=== PATIENT | male | born 1970 | race Caucasian/White ===

== ENCOUNTER 2017-09-25 02:30 | Day surgery (SDC) | payer OTHER ==
[~2017-09-25] VITALS: Ht 167.6 cm; Wt 92.7 kg
[~2017-09-25 02:30] MED LIST: ALBU90OI INH; ASPI325 PO; ASPI81CH PO; ATOR10 PO; ATOR40TA PO; BUPR75 PO; CYCL10 PO; FAMO20 PO; IBUP800 PO; LISI20 PO; METO25ER PO; MITIGARE0.6 MG PO; Plavix75 MG PO; RANI150 PO; Ultram50 MG PO
== END 2017-09-25 14:18 | disposition home or self-care (01) ==
LOC: MHTC 02:30
PROC: B211YZZ Fluoroscopy of Multiple Coronary Arteries using Other Contrast (ICD-10-PCS; principal; 2017-09-25)
PROC: 02703ZZ Dilation of Coronary Artery, One Artery, Percutaneous Approach (ICD-10-PCS; principal; 2017-09-25)
PROC: 4A023N7 Measurement of Cardiac Sampling and Pressure, Left Heart, Percutaneous Approach (ICD-10-PCS; principal; 2017-09-25)
DX: T82.855A Stenosis of coronary artery stent, initial encounter (principal); R06.02 Shortness of breath; R94.39 Abnormal result of other cardiovascular function study; I25.10 Atherosclerotic heart disease of native coronary artery without angina pectoris; E78.00 Pure hypercholesterolemia, unspecified; I10 Essential (primary) hypertension; E78.5 Hyperlipidemia, unspecified; Z79.02 Long term (current) use of antithrombotics/antiplatelets; F17.210 Nicotine dependence, cigarettes, uncomplicated
CPT/HCPCS: 85347; 92920; 93458; 99152; 99153; C1725; C1769; C1894; J1644; J2250; J3010; J7030; Q9967

== ENCOUNTER 2017-12-02 12:06 | Emergency (ER) | payer OTHER ==
[~2017-12-02] VITALS: Ht 167.6 cm; Wt 90.7 kg
== END 2017-12-02 12:47 | disposition home or self-care (01) ==
LOC: ER 12:06
DX: M77.9 Enthesopathy, unspecified (principal); Z88.0 Allergy status to penicillin; Z79.899 Other long term (current) drug therapy; Z79.82 Long term (current) use of aspirin; I25.2 Old myocardial infarction; F17.200 Nicotine dependence, unspecified, uncomplicated
CPT/HCPCS: 96372; 99283; J1885

== ENCOUNTER 2018-01-03 06:36 | Emergency (ER) | payer OTHER ==
[~2018-01-03] VITALS: Ht 170.2 cm; Wt 90.7 kg
[2018-01-03] MEDS ORDERED: Polytrim Eye Dr10 ML BOTHEYES (07:29)
[2018-01-03] MEDS ORDERED: ZADITOR5 ML BOTHEYES (07:29)
== END 2018-01-03 07:35 | disposition home or self-care (01) ==
LOC: ER 06:36
DX: H10.33 Unspecified acute conjunctivitis, bilateral (principal); I25.2 Old myocardial infarction; I25.10 Atherosclerotic heart disease of native coronary artery without angina pectoris; F17.200 Nicotine dependence, unspecified, uncomplicated; Z88.0 Allergy status to penicillin; Z79.899 Other long term (current) drug therapy; Z79.82 Long term (current) use of aspirin
CPT/HCPCS: 99282

== ENCOUNTER 2018-01-04 20:27 | Emergency (ER) | payer OTHER ==
[~2018-01-04] VITALS: Ht 167.6 cm; Wt 90.7 kg
[~2018-01-04 20:27] MED LIST changes: +Polytrim Eye Dr10 ML BOTHEYES; +ZADITOR5 ML BOTHEYES
[2018-01-04 23:06] LABS: BASOPHILS ABSOLUTE AUTO 0.02 K/mm3 (0.00-0.23); BASOPHILS PERCENT AUTO 0 % (0-2); EOSINOPHILS ABSOLUTE AUTO 0.15 K/mm3 (0.00-0.68); EOSINOPHILS PERCENT AUTO 2 % (0-6); Hematocrit 42.6 % (37.0-53.0); Hemoglobin 14.5 g/dL (13.5-17.5); IMMATURE GRAN ABSOLUTE AUTO 0.04 K/mm3 (0.00-0.10); IMMATURE GRAN PERCENT AUTO 0 % (0-1); LYMPHOCYTES ABSOLUTE AUTO 2.68 K/mm3 (0.84-5.20); LYMPHOCYTES PERCENT AUTO 29 % (21-46); MONOCYTES PERCENT AUTO 10 % (4-13); Mean Corpuscular HGB 30.1 pg (26.0-34.0); Mean Corpuscular Volume 89 fL (80-100); Mean Platelet Volume 10.3 fL (9.1-12.4); NEUTROPHILS ABSOLUTE AUTO 5.42 K/mm3 (1.96-9.15); NEUTROPHILS PERCENT AUTO 59 % (41-73); Platelet Count 208 K/mm3 (150-400); RDW Coefficient Variation 11.9 % (11.7-14.2); RDW Standard Deviation 38.5 fL (35.1-46.3); Red Blood Cell Count 4.81 M/mm3 (4.30-5.90); White Blood Cell Count 9.21 K/mm3 (4.00-11.30)
[2018-01-04 23:26] LABS: Alanine Aminotransfer (ALT/SGP 32 U/L (12-78); Albumin/Globulin Ratio 1.3 (0.8-1.8); Alk Phos 54 U/L (50-136); Anion Gap 9 mmol/L (6-16); Aspartate Aminotrans (AST/SGOT 22 U/L (12-37); Bilirubin, Total 0.4 mg/dL (0.1-1.0); Blood Urea Nitrogen 17 mg/dL (8-24); CO2, Blood 26 mmol/L (21-32); Calcium, Blood 8.4 mg/dL (8.5-10.1); Chloride, Blood 106 mmol/L (98-108); Globulin, Blood 3.1 g/dL (2.2-4.0); Glomerular Filtration Rate >60 (60-); Glucose, Blood 98 mg/dL (70-99); Potassium, Blood 3.8 mmol/L (3.5-5.5); Sodium, Blood 141 mmol/L (136-145); Total Protein, Blood 7.1 g/dL (6.4-8.2); Troponin I <0.015 ng/mL (0.000-0.040)
[2018-01-05] MEDS ORDERED: Prednisone20 MG PO (01:39)
== END 2018-01-05 01:49 | disposition home or self-care (01) ==
LOC: ER 20:27
PROVIDERS: Emergency Medicine
DX: G51.0 Bell's palsy (principal); H10.9 Unspecified conjunctivitis; I25.2 Old myocardial infarction; F17.210 Nicotine dependence, cigarettes, uncomplicated; Z88.0 Allergy status to penicillin
CPT/HCPCS: 36415; 70450; 80053; 84484; 85025; 96374; 99285-25; J1885

== ENCOUNTER 2018-06-15 13:16 | Emergency (ER) | payer OTHER ==
[~2018-06-15] VITALS: Ht 170.2 cm; Wt 90.7 kg
[~2018-06-15 13:16] MED LIST changes: +Prednisone20 MG PO
== END 2018-06-15 13:47 | disposition home or self-care (01) ==
LOC: ER 13:16
DX: R23.3 Spontaneous ecchymoses (principal); H11.33 Conjunctival hemorrhage, bilateral; Z88.0 Allergy status to penicillin; Z79.899 Other long term (current) drug therapy; Z79.82 Long term (current) use of aspirin; I25.2 Old myocardial infarction; F17.210 Nicotine dependence, cigarettes, uncomplicated
CPT/HCPCS: 99282

== ENCOUNTER 2018-08-31 10:59 | Emergency (ER) | payer OTHER ==
[~2018-08-31] VITALS: Ht 170.2 cm; Wt 95.2 kg
[2018-08-31] MEDS ORDERED: Norco 10-325 T1 EACH PO (13:36)
[2018-08-31] MEDS ORDERED: Robaxin-750750 MG PO (13:36)
[2018-08-31] MEDS ORDERED: LIDO700A20 TOP (13:36)
== END 2018-08-31 14:30 | disposition home or self-care (01) ==
LOC: ER 10:59
DX: S93.402A Sprain of unspecified ligament of left ankle, initial encounter (principal); S39.012A Strain of muscle, fascia and tendon of lower back, initial encounter; S16.1XXA Strain of muscle, fascia and tendon at neck level, initial encounter; X50.9XXA Other and unspecified overexertion or strenuous movements or postures, initial encounter; Z88.0 Allergy status to penicillin; Z79.899 Other long term (current) drug therapy; Z79.82 Long term (current) use of aspirin; Z79.52 Long term (current) use of systemic steroids; I25.2 Old myocardial infarction; F17.200 Nicotine dependence, unspecified, uncomplicated
CPT/HCPCS: 72040; 72100; 73610; 99284-25

== ENCOUNTER 2018-12-19 12:02 | Emergency (ER) | payer OTHER ==
[~2018-12-19] VITALS: Ht 162.6 cm; Wt 92.5 kg
[~2018-12-19 12:02] MED LIST changes: +LIDO700A20 TOP; +Norco 10-325 T1 EACH PO; +Robaxin-750750 MG PO
[2018-12-19 13:14] LABS: Source, Urine Clean Catch
[2018-12-19 13:16] LABS: Appearance, Urine Clear (Clear); Bilirubin, Urine Neg (Neg); Blood, Urine Neg (Neg); Color, Urine Yellow (P-Yellow); Glucose Qualitative, Urine Neg (Neg); Ketones, Urine 1+ (Neg); Leukocyte Esterase, Urine 1+ (Neg); Nitrite, Urine Neg (Neg); Protein, Urine 2+ (Neg); Specific Gravity, Urine 1.025 (1.003-1.022); Urobilinogen, Urine 2+ (Normal)
[2018-12-19 14:18] LABS: Bacteria Mod /hpf; Hyaline Casts 0-2 /lpf (0-2); Mucus Light (0-Heavy); Red Blood Cells, Urine 0-2 /hpf (0-2); Squamous Epithelial Cells Few /hpf (Few)
[2018-12-19] MEDS ORDERED: Percocet 5-3251 EACH PO (14:40)
== END 2018-12-19 15:04 | disposition home or self-care (01) ==
LOC: ER 12:02
PROVIDERS: Emergency Medicine
DX: S30.1XXA Contusion of abdominal wall, initial encounter (principal); W22.8XXA Striking against or struck by other objects, initial encounter; I25.2 Old myocardial infarction; Z88.0 Allergy status to penicillin; Z79.899 Other long term (current) drug therapy; Z79.82 Long term (current) use of aspirin; Z79.52 Long term (current) use of systemic steroids; F17.200 Nicotine dependence, unspecified, uncomplicated
CPT/HCPCS: 72100; 72170; 81001; 90471; 90714; 99283-25

== ENCOUNTER → 2018-12-27 | Outpatient (CLI) | payer OTHER ==
[~2018-12-27] MED LIST changes: +LOSA25 PO; +Percocet 10-321 EACH PO; +Percocet 5-3251 EACH PO
== END | disposition home or self-care (01) ==
LOC: LAB EV 11:28 → LAB SHORT 11:28
DX: N39.0 Urinary tract infection, site not specified (principal)
CPT/HCPCS: 87086

== ENCOUNTER 2018-12-28 19:49 | Emergency (ER) | payer OTHER ==
[~2018-12-28] VITALS: Ht 167.6 cm; Wt 89.8 kg
[~2018-12-28 19:49] MED LIST changes: -LOSA25 PO; -Percocet 10-321 EACH PO
[2018-12-28 21:09] LABS: BASOPHILS ABSOLUTE AUTO 0.05 K/mm3 (0.00-0.23); BASOPHILS PERCENT AUTO 0 % (0-2); EOSINOPHILS ABSOLUTE AUTO 0.22 K/mm3 (0.00-0.68); EOSINOPHILS PERCENT AUTO 2 % (0-6); Hemoglobin 14.8 g/dL (13.5-17.5); IMMATURE GRAN ABSOLUTE AUTO 0.09 K/mm3 (0.00-0.10); IMMATURE GRAN PERCENT AUTO 1 % (0-1); LYMPHOCYTES ABSOLUTE AUTO 3.37 K/mm3 (0.84-5.20); LYMPHOCYTES PERCENT AUTO 26 % (21-46); MONOCYTES ABSOLUTE AUTO 1.08 K/mm3 (0.16-1.47); MONOCYTES PERCENT AUTO 8 % (4-13); Mean Corpuscular HGB 30.7 pg (26.0-34.0); Mean Corpuscular HGB Conc 33.6 g/dL (31.5-36.5); Mean Corpuscular Volume 91 fL (80-100); Mean Platelet Volume 10.6 fL (9.1-12.4); NEUTROPHILS ABSOLUTE AUTO 8.43 K/mm3 (1.96-9.15); NEUTROPHILS PERCENT AUTO 64 % (41-73); Platelet Count 256 K/mm3 (150-400); RDW Coefficient Variation 12.5 % (11.7-14.2); RDW Standard Deviation 41.6 fL (35.1-46.3); Red Blood Cell Count 4.82 M/mm3 (4.30-5.90); White Blood Cell Count 13.24 K/mm3 (4.00-11.30)
[2018-12-28 21:25] LABS: Alanine Aminotransfer (ALT/SGP 65 U/L (12-78); Albumin/Globulin Ratio 1.1 (0.8-1.8); Alk Phos 81 U/L (50-136); Anion Gap 9 mmol/L (6-16); Aspartate Aminotrans (AST/SGOT 23 U/L (12-37); Bilirubin, Total 0.3 mg/dL (0.1-1.0); Blood Urea Nitrogen 19 mg/dL (8-24); Bun/Creatinine Ratio 22.4 (12.0-20.0); CO2, Blood 24 mmol/L (21-32); Calcium, Blood 9.2 mg/dL (8.5-10.1); Chloride, Blood 104 mmol/L (98-108); Creatinine, Blood 0.85 mg/dL (0.60-1.20); Globulin, Blood 3.5 g/dL (2.2-4.0); Glomerular Filtration Rate >60 (60-); Glucose, Blood 106 mg/dL (70-99); Potassium, Blood 3.8 mmol/L (3.5-5.5); Sodium, Blood 137 mmol/L (136-145); Total Protein, Blood 7.5 g/dL (6.4-8.2)
[2018-12-28] MEDS ORDERED: LOSA25 PO (22:57)
[2018-12-28] MEDS ORDERED: Percocet 10-321 EACH PO (23:20)
== END 2018-12-28 23:38 | disposition home or self-care (01) ==
LOC: ER 19:49
PROVIDERS: Physician Assistant
DX: S70.02XA Contusion of left hip, initial encounter (principal); W22.8XXA Striking against or struck by other objects, initial encounter; Z88.0 Allergy status to penicillin; Z79.899 Other long term (current) drug therapy; Z79.82 Long term (current) use of aspirin; I25.2 Old myocardial infarction; F17.210 Nicotine dependence, cigarettes, uncomplicated
CPT/HCPCS: 36415; 74177; 80053; 85025; 96361-59; 96374-59; 96375-59; 99284-25; A9270; J2270; J2405; J3010; J7120; Q9967

== ENCOUNTER 2019-05-15 12:57 | Emergency (ER) | payer OTHER ==
[~2019-05-15] VITALS: Ht 167.6 cm; Wt 97.1 kg
[~2019-05-15 12:57] MED LIST changes: +LOSA25 PO; +Percocet 10-321 EACH PO
[2019-05-15] MEDS ORDERED: CEPH500 PO (15:08)
[2019-05-15] MEDS ORDERED: HYDR1TAB94 PO (15:10)
== END 2019-05-15 15:27 | disposition home or self-care (01) ==
LOC: ER 12:57
DX: S81.012A Laceration without foreign body, left knee, initial encounter (principal); F17.210 Nicotine dependence, cigarettes, uncomplicated; Z88.0 Allergy status to penicillin; Z79.899 Other long term (current) drug therapy; Z79.82 Long term (current) use of aspirin; Z79.02 Long term (current) use of antithrombotics/antiplatelets; W22.8XXA Striking against or struck by other objects, initial encounter
CPT/HCPCS: 12005; 73562-LT; 96372-59; 99283-25; J0690

== ENCOUNTER 2019-05-28 11:49 | Emergency (ER) | payer OTHER ==
[~2019-05-28] VITALS: Ht 167.6 cm; Wt 90.7 kg
[~2019-05-28 11:49] MED LIST changes: +CEPH500 PO; +HYDR1TAB94 PO
== END 2019-05-28 12:15 | disposition home or self-care (01) ==
LOC: ER 11:49
DX: S81.012D Laceration without foreign body, left knee, subsequent encounter (principal); F17.210 Nicotine dependence, cigarettes, uncomplicated; Z88.0 Allergy status to penicillin; Z79.899 Other long term (current) drug therapy; Z79.82 Long term (current) use of aspirin

== ENCOUNTER 2019-07-10 08:27 | Emergency (ER) | payer OTHER ==
[~2019-07-10] VITALS: Ht 167.6 cm; Wt 95.7 kg
[2019-07-10] MEDS ORDERED: HYDR1TAB94 PO (11:12)
[2019-07-10] MEDS ORDERED: CYCL10 PO (11:12)
[2019-07-10] MEDS ORDERED: IBU800 MG PO (11:12)
== END 2019-07-10 11:48 | disposition home or self-care (01) ==
LOC: ER 08:27
DX: S13.9XXA Sprain of joints and ligaments of unspecified parts of neck, initial encounter (principal); S33.5XXA Sprain of ligaments of lumbar spine, initial encounter; I25.2 Old myocardial infarction; F17.210 Nicotine dependence, cigarettes, uncomplicated; Z88.0 Allergy status to penicillin; Z79.82 Long term (current) use of aspirin; Z79.899 Other long term (current) drug therapy; V59.40XA Driver of pick-up truck or van injured in collision with unspecified motor vehicles in traffic accident, initial encounter
CPT/HCPCS: 72040; 72100; 99283-25

== ENCOUNTER 2019-08-24 11:41 | Day surgery (SDC) | payer OTHER ==
[~2019-08-24] VITALS: Ht 167.6 cm; Wt 92.2 kg
[~2019-08-24 11:41] MED LIST changes: +Aspir 8181 MG PO; +COLCHICINE0.6 MG PO; +DULO30 PO; +IBU800 MG PO; +METO50ER PO; +OMEP20ER PO; +SPIRIVA RESPIMAT4 GM INH; +Ventolin/Prove6.7 GM INH
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
--- NOTE | 2019-08-24 14:52 | NUR ---
08/24/19 0385 Lelo Hanley PT. WAS HAVING PAIN ACROSS ABD. WHEN HE WOKE UP. PT. INSTRUCTED PROBABLY SOME AIR IN HIS COLON THAT HE JUST NEEDS TO PASS OR WILL ABSORB. WHEN PT. GOT TO SD PT. DIDN'T HAVE THIS PAIN. PT. DID C/O A SCRATCHY THROAT BUT FELT BETTER WHEN GETTING SOMETHING TO DRINK.
== END 2019-08-24 14:25 | disposition home or self-care (01) ==
LOC: ORSCSDS 11:41
PROVIDERS: Internal Medicine Gastroenterology
PROC: 0DBM8ZX Excision of Descending Colon, Via Natural or Artificial Opening Endoscopic, Diagnostic (ICD-10-PCS; principal; 2019-08-24 13:00)
PROC: 0DBE8ZX Excision of Large Intestine, Via Natural or Artificial Opening Endoscopic, Diagnostic (ICD-10-PCS; principal; 2019-08-24 13:00)
PROC: 0DB78ZX Excision of Stomach, Pylorus, Via Natural or Artificial Opening Endoscopic, Diagnostic (ICD-10-PCS; principal; 2019-08-24 13:00)
DX: K92.1 Melena (principal); D12.4 Benign neoplasm of descending colon; K63.5 Polyp of colon; K29.70 Gastritis, unspecified, without bleeding; B96.81 Helicobacter pylori [H. pylori] as the cause of diseases classified elsewhere; K29.80 Duodenitis without bleeding; R19.4 Change in bowel habit; R10.32 Left lower quadrant pain; I10 Essential (primary) hypertension; E78.00 Pure hypercholesterolemia, unspecified; F31.9 Bipolar disorder, unspecified; I25.2 Old myocardial infarction; F17.210 Nicotine dependence, cigarettes, uncomplicated; J44.9 Chronic obstructive pulmonary disease, unspecified; I25.10 Atherosclerotic heart disease of native coronary artery without angina pectoris; Z79.899 Other long term (current) drug therapy; Z79.82 Long term (current) use of aspirin; K64.8 Other hemorrhoids
CPT/HCPCS: 88305; 88342; J2704; J7120

== ENCOUNTER 2020-04-01 19:04 | Emergency (ER) | payer OTHER ==
[~2020-04-01] VITALS: Ht 170.2 cm; Wt 90.7 kg
[2020-04-01] MEDS ORDERED: Cleocin HCl300 MG PO (20:00)
[2020-04-01] MEDS ORDERED: IBUP600 PO (20:00)
== END 2020-04-01 20:11 | disposition home or self-care (01) ==
LOC: ER 19:04
DX: K04.7 Periapical abscess without sinus (principal); I25.2 Old myocardial infarction; F17.210 Nicotine dependence, cigarettes, uncomplicated; Z88.0 Allergy status to penicillin; Z79.02 Long term (current) use of antithrombotics/antiplatelets; Z79.82 Long term (current) use of aspirin; Z79.899 Other long term (current) drug therapy
CPT/HCPCS: 99282; A9270

== ENCOUNTER 2020-08-15 10:14 | Emergency (ER) | payer OTHER ==
[~2020-08-15] VITALS: Ht 167.6 cm; Wt 90.7 kg
[~2020-08-15 10:14] MED LIST changes: +Cleocin HCl300 MG PO; +IBUP600 PO
[2020-08-15] MEDS ORDERED: IBUP600 PO (10:48)
[2020-10-31] MEDS ORDERED: PLAVIX75 MG PO (14:09)
== END 2020-08-15 10:56 | disposition home or self-care (01) ==
LOC: ER 10:14
DX: G56.03 Carpal tunnel syndrome, bilateral upper limbs (principal); I25.2 Old myocardial infarction; F17.210 Nicotine dependence, cigarettes, uncomplicated; Z79.02 Long term (current) use of antithrombotics/antiplatelets; Z79.82 Long term (current) use of aspirin; Z79.899 Other long term (current) drug therapy
CPT/HCPCS: 29125; 99283; A9270

== ENCOUNTER 2020-08-28 05:09 | Emergency (ER) | payer OTHER ==
[~2020-08-28] VITALS: Ht 167.6 cm; Wt 86.2 kg
[2020-08-28] MEDS ORDERED: IBUP600 PO ×2 (05:42→07:38)
[2020-08-28] MEDS ORDERED: LATUDA20 M3 PO (05:43)
[2020-08-28] MEDS ORDERED: INCRUSE ELLIPTA 62.5 (05:43)
[2020-08-28] MEDS ORDERED: Ventolin/Prove6.7 GM INH (05:43)
[2020-08-28] MEDS ORDERED: LOSARTAN POTASS25 M2 PO (05:44)
[2020-08-28] MEDS ORDERED: GABA100 PO (05:44)
[2020-08-28] MEDS ORDERED: ATOR40TA PO (05:44)
[2020-08-28] MEDS ORDERED: LOW DOSE ASPIRI81 M1 PO (05:45)
[2020-08-28] MEDS ORDERED: METO50ER PO (05:45)
[2020-10-31] MEDS ORDERED: PLAVIX75 MG PO (14:09)
== END 2020-08-28 07:48 | disposition home or self-care (01) ==
LOC: ER 05:09
DX: S39.011A Strain of muscle, fascia and tendon of abdomen, initial encounter (principal); M25.551 Pain in right hip; M54.5 Low back pain; I25.2 Old myocardial infarction; E11.9 Type 2 diabetes mellitus without complications; Z79.82 Long term (current) use of aspirin; Z88.0 Allergy status to penicillin; Z79.899 Other long term (current) drug therapy; Z95.5 Presence of coronary angioplasty implant and graft; W01.10XA Fall on same level from slipping, tripping and stumbling with subsequent striking against unspecified object, initial encounter
CPT/HCPCS: 72100; 73502; 73700; 96372; 99284-25; A9270; J1885

== ENCOUNTER 2020-10-31 20:39 | Observation (INO) | payer OTHER ==
[~2020-10-31] VITALS: Ht 162.6 cm; Wt 93.0 kg
[~2020-10-31 20:39] MED LIST changes: +GABA100 PO; +INCRUSE ELLIPTA 62.5; +LATUDA20 M3 PO; +LOSARTAN POTASS25 M2 PO; +LOW DOSE ASPIRI81 M1 PO; +PLAVIX75 MG PO
[2020-10-31] MEDS ORDERED: GABA100 PO (21:43)
[2020-10-31] MEDS ORDERED: INCRUSE ELLIPTA 62.5 INH (21:43)
--- NOTE | 2020-11-01 00:14 | NUR ---
ORTHOSTATIC VITALS COMPLETED. MINOR DECREASE IN BP, MINOR INCREASE IN HR.
[2020-11-01 00:16] LABS: CHOL/HDL RATIO 7.7; Cholesterol 200 mg/dL (50-200); HDL Cholesterol 26 mg/dL (>39); LDL/HDL RATIO Unable to Calculate; Low Density Lipoprotein Chol Unable to Calculate mg/dL (0-110); Triglycerides 413 mg/dL (30-160); Troponin I <0.015 ng/mL (0.000-0.040); Very Low Density Lipoprot Chol Unable to Calculate mg/dL (6-32)
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
--- NOTE | 2020-11-01 10:30 | NUR ---
AMBULATION PT NOTED TO BE DIAPHORETIC W/ DYSPNEA AFTER SHORT AMBULATION TO BATHROOM & BACK. TELE REPORTS HR TO HAVE CLIMBED TO THE 130's -140's.
[2020-11-01 13:04] LABS: SARS-Cov-2 (COVID-19) PCR, MMC NEGATIVE (NEGATIVE)
--- NOTE | 2020-11-01 14:21 | NUR ---
PT TO HEART CENTER VIA W/C
--- NOTE | 2020-11-01 14:52 | NUR ---
REPORT CALLED TO LATH TIER
--- NOTE | 2020-11-01 17:49 | NUR ---
AHIFT SUMMARY PT ARRIVED TO UNIT FROM [facility] VIA HOSPITAL BED @ 1623. PT IS A/O X4 AND COOPERATIVE OF CARE. TR BAND IN PLACE WITH 11 ML, NO HEMATOMA, BLEEDING OR PAIN NOTED. VSS SINCE ARRIVAL. O2 SATS >98% ON RA SINCE ARRIVAL TO UNIT. NO C/O CHEST PAIN/PRESSURE SINCE ARRIVAL TO UNIT. NS @100 ML RUNNING PER EMAR.
--- NOTE | 2020-11-01 21:40 | NUR ---
ASSUMED CARE OF PATIENT AT APPROXIMATELY 1910 FROM VALERIE Kovacs, RN AND PARTS COUNTER SALESPERSON GERRY. PATIENT ALERT AND ORIENTED X4; ANXIOUS AT TIMES. PATIENT S/P ANIOGRAM RIGHT RADIAL ACCESS W/ TR BAND IN PLACE; REMOVED 3CC OF AIR AND FULLY DEFLATED DURING BEDSIDE REPORT. PATIENT NEEDED TO GO TO CT AFTER TR BAND DEFLATED; TR BAND REMOVED BY ANOTHER RN AND TEGADERM PLACED WITH ARMBOARD IN PLACE; NO S/S OF BLEEDING, HEMATOMA OR BRUISING NOTED. PATIENT DENIES PAIN, NUMBNESS, TINGLING, DIZZINESS AND NAUSEA. SBA OUT OF BED DUE TO RECENT SYNCOPE. NSR ON TELE; OXYGEN SATUARTION ABOVE 90% ON ROOM AIR. NS INFUSING PER ORDER.
[2020-11-02 03:43] LABS: BASOPHILS ABSOLUTE AUTO 0.04 K/mm3 (0.00-0.23); BASOPHILS PERCENT AUTO 1 % (0-2); EOSINOPHILS ABSOLUTE AUTO 0.19 K/mm3 (0.00-0.68); EOSINOPHILS PERCENT AUTO 2 % (0-6); Hematocrit 44.1 % (37.0-53.0); Hemoglobin 14.8 g/dL (13.5-17.5); IMMATURE GRAN PERCENT AUTO 1 % (0-1); LYMPHOCYTES ABSOLUTE AUTO 2.77 K/mm3 (0.84-5.20); LYMPHOCYTES PERCENT AUTO 32 % (21-46); MONOCYTES ABSOLUTE AUTO 0.96 K/mm3 (0.16-1.47); MONOCYTES PERCENT AUTO 11 % (4-13); Mean Corpuscular HGB 29.7 pg (26.0-34.0); Mean Corpuscular HGB Conc 33.6 g/dL (31.5-36.5); Mean Corpuscular Volume 88 fL (80-100); Mean Platelet Volume 9.9 fL (9.1-12.4); NEUTROPHILS ABSOLUTE AUTO 4.67 K/mm3 (1.96-9.15); NEUTROPHILS PERCENT AUTO 54 % (41-73); Platelet Count 245 K/mm3 (150-400); RDW Coefficient Variation 12.3 % (11.7-14.2); RDW Standard Deviation 39.8 fL (35.1-46.3); Red Blood Cell Count 4.99 M/mm3 (4.30-5.90); White Blood Cell Count 8.73 K/mm3 (4.00-11.30)
[2020-11-02 04:13] LABS: Alanine Aminotransfer (ALT/SGP 36 U/L (12-78); Albumin, Blood 3.6 g/dL (3.4-5.0); Alk Phos 64 U/L (50-136); Anion Gap 4 mmol/L (6-16); Aspartate Aminotrans (AST/SGOT 10 U/L (12-37); Bilirubin, Total 0.3 mg/dL (0.1-1.0); Blood Urea Nitrogen 17 mg/dL (8-24); CO2, Blood 28 mmol/L (21-32); Calcium, Blood 8.7 mg/dL (8.5-10.1); Chloride, Blood 104 mmol/L (98-108); Globulin, Blood 3.6 g/dL (2.2-4.0); Glomerular Filtration Rate >60 (60-); Glucose, Blood 111 mg/dL (70-99); Magnesium, Blood 2.3 mg/dL (1.6-2.4); Potassium, Blood 4.2 mmol/L (3.5-5.5); Sodium, Blood 136 mmol/L (136-145); Total Protein, Blood 7.2 g/dL (6.4-8.2)
--- NOTE | 2020-11-02 06:46 | NUR ---
PATIENT SLEPT ABOUT EIGHT HOURS LAST NIGHT. VSS. NO OTHER ACUTE CHANGES.
--- NOTE | 2020-11-02 10:12 | NUR ---
PT AGGITATED PT BECAME AGGITATED WITH [employer] AIR TRAFFIC CONTROL SPECIALIST D/T BEING INFORMED OF DRIVING REGULATIONS REGARDING SYNCOPE. SECURITY CALLED. PHYSICIAN AWARE, DISHCARGE PAPERWORK TO BE PROVIDED. PT NO LONGER AGGITATED.
--- NOTE | 2020-11-02 10:22 | NUR ---
UPDATE PT REMOVED TELEMETRY PATCHES D/T PENDING DC.
[2020-11-02] MEDS ORDERED: NICO21TP TOP (10:35)
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
--- NOTE | 2020-11-02 12:04 | NUR ---
Update 11/02/20 1202: Dr. Estrada visited pt. this AM and discussed risk of driving with re-occurring episodes of syncope. She advised pt. that she would be required to report to the DMV the concern for driving and pt. became angry. Pt. leaving the hospital AMA. I scheduled pt. for F/U with César Alston next week. I advised César to please review hospital discharge summary prior to visit. Nurse gave pt. the details regarding appointment.
== END 2020-11-02 10:48 | disposition home or self-care (01) ==
LOC: ER 20:39 → SURS 20:40 → PCU 11-01 16:12
PROVIDERS: Family Medicine; Internal Medicine Cardiovascular Disease; ADMIT Family Medicine
DX: R55 Syncope and collapse (principal); I25.119 Atherosclerotic heart disease of native coronary artery with unspecified angina pectoris; F17.210 Nicotine dependence, cigarettes, uncomplicated; F10.10 Alcohol abuse, uncomplicated; G62.9 Polyneuropathy, unspecified; I10 Essential (primary) hypertension; E78.5 Hyperlipidemia, unspecified; F12.90 Cannabis use, unspecified, uncomplicated; I25.2 Old myocardial infarction; I70.0 Atherosclerosis of aorta; I65.23 Occlusion and stenosis of bilateral carotid arteries; E66.9 Obesity, unspecified; Z95.5 Presence of coronary angioplasty implant and graft; Z91.14 Patient's other noncompliance with medication regimen; Z20.822 Contact with and (suspected) exposure to COVID-19; Z79.82 Long term (current) use of aspirin; Z79.02 Long term (current) use of antithrombotics/antiplatelets; Z88.0 Allergy status to penicillin; Z68.33 Body mass index [BMI] 33.0-33.9, adult
CPT/HCPCS: 36415; 70450; 71046; 76937; 80053; 80061; 83036; 83735; 84484; 85025; 85347; 92978; 93005; 93010; 93246; 93306; 93454; 93880; 94760; 96372; 99152; 99153; 99284; 99284-25; A9270; C1753; C1769; C1887; C1894; G0378; J1644; J1650; J2250; J3010; J7030; J7050; J7120; Q9967; U0004

== ENCOUNTER 2020-11-23 17:10 | Emergency (ER) | payer OTHER ==
[~2020-11-23] VITALS: Ht 160 cm; Wt 90.7 kg
[~2020-11-23 17:10] MED LIST changes: +INCRUSE ELLIPTA 62.5 INH; +NICO21TP TOP
[2020-11-23 17:36] LABS: BASOPHILS ABSOLUTE AUTO 0.03 K/mm3 (0.00-0.23); BASOPHILS PERCENT AUTO 0 % (0-2); EOSINOPHILS ABSOLUTE AUTO 0.17 K/mm3 (0.00-0.68); EOSINOPHILS PERCENT AUTO 2 % (0-6); Hematocrit 38.6 % (37.0-53.0); Hemoglobin 12.9 g/dL (13.5-17.5); IMMATURE GRAN ABSOLUTE AUTO 0.12 K/mm3 (0.00-0.10); IMMATURE GRAN PERCENT AUTO 1 % (0-1); LYMPHOCYTES ABSOLUTE AUTO 1.46 K/mm3 (0.84-5.20); LYMPHOCYTES PERCENT AUTO 14 % (21-46); MONOCYTES ABSOLUTE AUTO 1.05 K/mm3 (0.16-1.47); MONOCYTES PERCENT AUTO 10 % (4-13); Mean Corpuscular HGB 29.9 pg (26.0-34.0); Mean Corpuscular HGB Conc 33.4 g/dL (31.5-36.5); Mean Corpuscular Volume 90 fL (80-100); Mean Platelet Volume 9.6 fL (9.1-12.4); NEUTROPHILS ABSOLUTE AUTO 7.57 K/mm3 (1.96-9.15); NEUTROPHILS PERCENT AUTO 73 % (41-73); Platelet Count 244 K/mm3 (150-400); RDW Coefficient Variation 12.5 % (11.7-14.2); RDW Standard Deviation 41.3 fL (35.1-46.3); Red Blood Cell Count 4.31 M/mm3 (4.30-5.90)
[2020-11-23 17:57] LABS: Alanine Aminotransfer (ALT/SGP 48 U/L (12-78); Albumin, Blood 3.9 g/dL (3.4-5.0); Alk Phos 90 U/L (50-136); Anion Gap 4 mmol/L (6-16); Aspartate Aminotrans (AST/SGOT 36 U/L (12-37); Bilirubin, Total 0.7 mg/dL (0.1-1.0); Blood Urea Nitrogen 14 mg/dL (8-24); Bun/Creatinine Ratio 12.8 (12.0-20.0); CO2, Blood 25 mmol/L (21-32); Calcium, Blood 8.9 mg/dL (8.5-10.1); Chloride, Blood 109 mmol/L (98-108); Creatinine, Blood 1.09 mg/dL (0.60-1.20); Ethanol (Alcohol), Blood, Med <3 mg/dL; Globulin, Blood 3.8 g/dL (2.2-4.0); Glomerular Filtration Rate >60 (60-); Glucose, Blood 95 mg/dL (70-99); Potassium, Blood 3.6 mmol/L (3.5-5.5); Sodium, Blood 138 mmol/L (136-145); Total Protein, Blood 7.7 g/dL (6.4-8.2)
[2020-11-23 18:06] LABS: U Amphetamine Screen DETECTED; U Barbituate Screen Not Detected; U Benzodiazapine Screen Not Detected; U Buprenorphine Screen Not Detected; U Cannabinoids Screen DETECTED; U Cocaine Screen Not Detected; U Methadone Screen Not Detected; U Methamphetamine Screen DETECTED; U Opiates Screen Not Detected; U Oxycodone Screen Not Detected; U Phencyclidine Screen Not Detected; U Propoxyphene Screen Not Detected
[2020-11-23] MEDS ORDERED: HYDR1TAB94 PO (22:27)
== END 2020-11-23 22:57 | disposition home or self-care (01) ==
LOC: ER 17:10
PROVIDERS: Emergency Medicine
DX: S22.081A Stable burst fracture of T11-T12 vertebra, initial encounter for closed fracture (principal); I25.2 Old myocardial infarction; F17.210 Nicotine dependence, cigarettes, uncomplicated; Z88.0 Allergy status to penicillin; Z79.82 Long term (current) use of aspirin; Z88.6 Allergy status to analgesic agent; Z79.899 Other long term (current) drug therapy; V48.9XXA Unspecified car occupant injured in noncollision transport accident in traffic accident, initial encounter
CPT/HCPCS: 29125; 36415; 71260; 72125; 73110; 73610; 74177; 80053; 85025; 96374; 99284-25; A9270; G0480; J2704; J3010; J7030; Q9967

== ENCOUNTER 2020-12-02 23:06 | Emergency (ER) | payer OTHER ==
[~2020-12-02] VITALS: Ht 162.6 cm; Wt 88.5 kg
== END 2020-12-03 01:39 | disposition home or self-care (01) ==
LOC: ER 23:06
DX: S30.0XXA Contusion of lower back and pelvis, initial encounter (principal); F17.210 Nicotine dependence, cigarettes, uncomplicated; Z88.0 Allergy status to penicillin; Z79.82 Long term (current) use of aspirin; V89.2XXA Person injured in unspecified motor-vehicle accident, traffic, initial encounter
CPT/HCPCS: 96372; 99283; J1885

== ENCOUNTER 2021-04-24 19:32 | Emergency (ER) | payer OTHER ==
[~2021-04-24] VITALS: Ht 167.6 cm; Wt 85.7 kg
[2021-04-24] MEDS ORDERED: CYCL10 PO (21:08)
[2021-04-24] MEDS ORDERED: LIDO700A20 TOP (21:08)
== END 2021-04-24 21:15 | disposition home or self-care (01) ==
LOC: ER 19:32
DX: S30.0XXA Contusion of lower back and pelvis, initial encounter (principal); I25.2 Old myocardial infarction; F17.210 Nicotine dependence, cigarettes, uncomplicated; Z88.0 Allergy status to penicillin; Z79.82 Long term (current) use of aspirin; Z79.899 Other long term (current) drug therapy; W22.8XXA Striking against or struck by other objects, initial encounter
CPT/HCPCS: 72100; 96372; 99283-25; A9270; J1885

== ENCOUNTER 2021-05-05 09:51 | Emergency (ER) | payer OTHER ==
[~2021-05-05] VITALS: Ht 167.6 cm; Wt 88.5 kg
== END 2021-05-05 12:20 | disposition home or self-care (01) ==
LOC: ER 09:51
DX: K56.41 Fecal impaction (principal); Z88.0 Allergy status to penicillin; Z79.899 Other long term (current) drug therapy; Z79.82 Long term (current) use of aspirin; I25.2 Old myocardial infarction; I10 Essential (primary) hypertension; F17.210 Nicotine dependence, cigarettes, uncomplicated
CPT/HCPCS: 99283

== ENCOUNTER 2021-07-01 23:24 | Emergency (ER) | payer OTHER ==
[~2021-07-01] VITALS: Ht 167.6 cm; Wt 88.5 kg
[2021-07-01] MEDS ORDERED: CEPH500 PO (23:56)
[2021-07-02] MEDS ORDERED: BACTRIM DS TAB1 EAC6 PO (14:55)
[2021-07-02] MEDS ORDERED: CEPH500 PO (14:55)
[2021-07-03] MEDS ORDERED: IBU800 M1 PO (15:48)
== END 2021-07-02 00:23 | disposition home or self-care (01) ==
LOC: ER 23:24
DX: L03.113 Cellulitis of right upper limb (principal); I10 Essential (primary) hypertension; I25.2 Old myocardial infarction; F17.210 Nicotine dependence, cigarettes, uncomplicated; Z88.0 Allergy status to penicillin; Z79.82 Long term (current) use of aspirin; Z79.899 Other long term (current) drug therapy
CPT/HCPCS: A9270

== ENCOUNTER 2021-07-02 12:56 | Inpatient (IN) | payer OTHER ==
[~2021-07-02] VITALS: Ht 167.6 cm; Wt 92.1 kg
[2021-07-02 13:43] LABS: BASOPHILS ABSOLUTE AUTO 0.06 K/mm3 (0.00-0.23); BASOPHILS PERCENT AUTO 0 % (0-2); EOSINOPHILS ABSOLUTE AUTO 0.03 K/mm3 (0.00-0.68); EOSINOPHILS PERCENT AUTO 0 % (0-6); Hematocrit 43.2 % (37.0-53.0); Hemoglobin 14.5 g/dL (13.5-17.5); IMMATURE GRAN ABSOLUTE AUTO 0.09 K/mm3 (0.00-0.10); IMMATURE GRAN PERCENT AUTO 0 % (0-1); LYMPHOCYTES ABSOLUTE AUTO 1.44 K/mm3 (0.84-5.20); LYMPHOCYTES PERCENT AUTO 7 % (21-46); MONOCYTES ABSOLUTE AUTO 1.54 K/mm3 (0.16-1.47); MONOCYTES PERCENT AUTO 8 % (4-13); Mean Corpuscular HGB 29.4 pg (26.0-34.0); Mean Corpuscular HGB Conc 33.6 g/dL (31.5-36.5); Mean Corpuscular Volume 88 fL (80-100); NEUTROPHILS PERCENT AUTO 85 % (41-73); Platelet Count 209 K/mm3 (150-400); RDW Coefficient Variation 12.2 % (11.7-14.2); RDW Standard Deviation 39.4 fL (35.1-46.3); Red Blood Cell Count 4.93 M/mm3 (4.30-5.90); White Blood Cell Count 20.16 K/mm3 (4.00-11.30)
[2021-07-02 14:10] LABS: Alanine Aminotransfer (ALT/SGP 36 U/L (12-78); Albumin, Blood 3.4 g/dL (3.4-5.0); Albumin/Globulin Ratio 0.8 (0.8-1.8); Alk Phos 85 U/L (50-136); Anion Gap 6 mmol/L (6-16); Aspartate Aminotrans (AST/SGOT 18 U/L (12-37); Bilirubin, Total 0.5 mg/dL (0.1-1.0); Blood Urea Nitrogen 13 mg/dL (8-24); Bun/Creatinine Ratio 14.1 (12.0-20.0); CO2, Blood 25 mmol/L (21-32); Calcium, Blood 8.6 mg/dL (8.5-10.1); Chloride, Blood 103 mmol/L (98-108); Creatinine, Blood 0.92 mg/dL (0.60-1.20); Globulin, Blood 4.2 g/dL (2.2-4.0); Glomerular Filtration Rate >60 (60-); Glucose, Blood 98 mg/dL (70-99); Potassium, Blood 3.8 mmol/L (3.5-5.5); Sodium, Blood 134 mmol/L (136-145); Total Protein, Blood 7.6 g/dL (6.4-8.2)
[2021-07-02] MEDS ORDERED: BACTRIM DS TAB1 EAC6 PO (14:55)
[2021-07-02] MEDS ORDERED: CEPH500 PO (14:55)
--- NOTE | 2021-07-02 18:30 | NUR ---
SUMMARY PT ARRIVED FROM THE ER, ALERT AND ORIENTED, INDEPENDENT IN THE ROOM, ORIENTED PT TO ROOM AND CALL SYSTEM, WILL REPORT TO NOC SHIFT
[2021-07-02 21:10] LABS: Influenza A, PCR NEGATIVE (NEGATIVE); Influenza B, PCR NEGATIVE (NEGATIVE); Resp Syncytial Virus, PCR NEGATIVE (NEGATIVE); SARS-Cov-2 (COVID-19) PCR, MMC NEGATIVE (NEGATIVE)
[2021-07-03 01:11] LABS: U Amphetamine Screen DETECTED; U Barbituate Screen Not Detected; U Benzodiazapine Screen Not Detected; U Buprenorphine Screen Not Detected; U Cannabinoids Screen Not Detected; U Cocaine Screen Not Detected; U Methadone Screen Not Detected; U Methamphetamine Screen DETECTED; U Opiates Screen Not Detected; U Oxycodone Screen Not Detected; U Phencyclidine Screen Not Detected; U Propoxyphene Screen Not Detected
[2021-07-03 04:37] LABS: BASOPHILS ABSOLUTE AUTO 0.03 K/mm3 (0.00-0.23); BASOPHILS PERCENT AUTO 0 % (0-2); EOSINOPHILS ABSOLUTE AUTO 0.08 K/mm3 (0.00-0.68); EOSINOPHILS PERCENT AUTO 1 % (0-6); IMMATURE GRAN ABSOLUTE AUTO 0.07 K/mm3 (0.00-0.10); IMMATURE GRAN PERCENT AUTO 1 % (0-1); LYMPHOCYTES ABSOLUTE AUTO 1.46 K/mm3 (0.84-5.20); LYMPHOCYTES PERCENT AUTO 11 % (21-46); MONOCYTES ABSOLUTE AUTO 1.37 K/mm3 (0.16-1.47); MONOCYTES PERCENT AUTO 10 % (4-13); Mean Corpuscular HGB 29.8 pg (26.0-34.0); Mean Corpuscular HGB Conc 34.2 g/dL (31.5-36.5); Mean Corpuscular Volume 87 fL (80-100); Mean Platelet Volume 9.9 fL (9.1-12.4); NEUTROPHILS ABSOLUTE AUTO 10.62 K/mm3 (1.96-9.15); NEUTROPHILS PERCENT AUTO 78 % (41-73); Platelet Count 182 K/mm3 (150-400); RDW Coefficient Variation 12.3 % (11.7-14.2); RDW Standard Deviation 39.6 fL (35.1-46.3); Red Blood Cell Count 4.36 M/mm3 (4.30-5.90); White Blood Cell Count 13.63 K/mm3 (4.00-11.30)
[2021-07-03 05:12] LABS: Anion Gap 8 mmol/L (6-16); Blood Urea Nitrogen 15 mg/dL (8-24); CO2, Blood 24 mmol/L (21-32); Calcium, Blood 8.2 mg/dL (8.5-10.1); Chloride, Blood 104 mmol/L (98-108); Creatinine, Blood 0.94 mg/dL (0.60-1.20); Glomerular Filtration Rate >60 (60-); Glucose, Blood 119 mg/dL (70-99); Potassium, Blood 3.7 mmol/L (3.5-5.5); Sodium, Blood 136 mmol/L (136-145)
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
[2021-07-03] MEDS ORDERED: IBU800 M1 PO (15:48)
--- NOTE | 2021-07-03 17:02 | NUR ---
SUMMARY PT SITTING UP IN BED VISITING WITH S.O., PT HAS BEEN COOPERATIVE WITH CARE T/O THE DAY, INDEPENDENT IN THE ROOM, MED PER EMAR FOR PAIN, PT HAD A CT SCAN OF THE R ARM TODAY, ORTHO CONSULTED, DR SCHMITZ IN TO SEE THE PT, POSSIBLY GOING TO THE OR TOMORROW FOR I AND D OF THE R HAND, PT TO BE NPO AFTER MIDNIGHT, PT AWARE AND AGREEABLE TO THIS, VSS, NO COMPLAINTS, WILL CONT TO MONITOR
[2021-07-03 20:11] LABS: Vancomycin, Trough 10.3 ug/mL (5.0-10.0)
--- NOTE | 2021-07-04 04:13 | NUR ---
SHIFT SUMMARY ADMITTED FOR RT HAND CELLULITIS. FULL CODE. PLAN IS FOR POSSIBLE I&D TODAY. IV ANTIB RX ARE SCHEDULED. PT HAS BEEN NPO SINCE 2400 HRS. PT HAS BEEN MEDICATED FOR PAIN THIS SHIFT, SEE EMAR. HE IS ON A REGULAR DIET. HE IS INDEPENDENT IN ROOM. HE IS ON RA. HE IS HOMELESS. HX: NE W/ STENTS 2014, METH+
[2021-07-04 04:45] LABS: BASOPHILS ABSOLUTE AUTO 0.04 K/mm3 (0.00-0.23); BASOPHILS PERCENT AUTO 0 % (0-2); EOSINOPHILS ABSOLUTE AUTO 0.15 K/mm3 (0.00-0.68); EOSINOPHILS PERCENT AUTO 1 % (0-6); Hematocrit 40.9 % (37.0-53.0); Hemoglobin 13.7 g/dL (13.5-17.5); IMMATURE GRAN ABSOLUTE AUTO 0.07 K/mm3 (0.00-0.10); IMMATURE GRAN PERCENT AUTO 1 % (0-1); LYMPHOCYTES ABSOLUTE AUTO 1.46 K/mm3 (0.84-5.20); LYMPHOCYTES PERCENT AUTO 14 % (21-46); MONOCYTES ABSOLUTE AUTO 1.19 K/mm3 (0.16-1.47); MONOCYTES PERCENT AUTO 12 % (4-13); Mean Corpuscular HGB 29.1 pg (26.0-34.0); Mean Corpuscular HGB Conc 33.5 g/dL (31.5-36.5); Mean Corpuscular Volume 87 fL (80-100); Mean Platelet Volume 10.1 fL (9.1-12.4); NEUTROPHILS ABSOLUTE AUTO 7.45 K/mm3 (1.96-9.15); NEUTROPHILS PERCENT AUTO 72 % (41-73); Platelet Count 189 K/mm3 (150-400); White Blood Cell Count 10.36 K/mm3 (4.00-11.30)
[2021-07-04 05:13] LABS: Anion Gap 7 mmol/L (6-16); Blood Urea Nitrogen 13 mg/dL (8-24); Bun/Creatinine Ratio 15.3 (12.0-20.0); CO2, Blood 25 mmol/L (21-32); Calcium, Blood 8.4 mg/dL (8.5-10.1); Chloride, Blood 103 mmol/L (98-108); Creatinine, Blood 0.85 mg/dL (0.60-1.20); Glomerular Filtration Rate >60 (60-); Glucose, Blood 121 mg/dL (70-99); Potassium, Blood 4.2 mmol/L (3.5-5.5); Sodium, Blood 135 mmol/L (136-145)
--- NOTE | 2021-07-04 11:41 | NUR ---
PATIENT NOTIFIED RN OF RIGHT CALF SWELLING AND TENDERNESS. NO REDNEDD NOTED. PEDAL PULSE PALPABLE. PATIENT C/O FEELING IF HIS FACE IS SWOLLEN, REDNEDD AROUND HIS NOSE AND FOREHEAD NOTED. DR. ALEXANDER NOTIFIED BY TELEPHONE ON 07/04/21 AT 11:42.
--- NOTE | 2021-07-04 17:10 | NUR ---
PATIENT IS ALERT AND ORIENTED AND COOPERATIVE WITH CARE. PATIENT C/O RIGHT CALF SWELLING AND TENDERNESS, DR. ALEXANDER NOTIFIED AND ORDERS GIVEN. PATIENT C/O RIGHT HAND PAIN, MEDICATED PER EMAR. IV ANTIBIOTICS. DR. ALVAREZ IS CONSULTING. WILL CONTINUE TO MONITOR
--- NOTE | 2021-07-04 19:45 | NUR ---
REPORT GIVEN BY TIA SMART. PT IRRITABLE UPON ENTERING ROOM. STATES JUST WHEN I GET TO SLEEP SOMEONE COMES AND WAKES ME UP. INFORMED PT THAT I WOULD BE COMING IN TO DO ASSESSMENT AND ASKED HIM IF HE NEEDED ANY PAIN MEDS. PT STATES HIS PAIN IS 9/10 RIGHT HAND AND RIGHT ARM. WILL MEDICATE FOR PAIN PER EMAR AND PROVIDE CARE T/O SHIFT. CALL LT IN REACH.
[2021-07-04 20:26] LABS: Vancomycin, Trough 18.2 ug/mL (5.0-10.0)
--- NOTE | 2021-07-04 23:58 | NUR ---
PT RESTING QUIETLY. NO NEEDS AT THIS TIME. CALL LT IN REACH.
--- NOTE | 2021-07-05 04:28 | NUR ---
SHIFT SUMMARY: A/O. LITTLE IRRITABLE AT TIMES. ON RA. NO SOB. MEDICATED WITH 4 MG IV MORPHINE X 2 FOR RIGHT HAND PAIN DURING SHIFT WITH GOOD RESULTS. PT RESTED WELL. NPO FOR POSSIBLE PROCEDURE TODAY. RIGHT HAND SWOLLEN AND TENDER TO TOUCH. NO ACUTE CHANGES. WILL CONTINUE TO PROVIDE CARE UNTIL SHIFT REPORT.
[2021-07-05 05:11] LABS: BASOPHILS ABSOLUTE AUTO 0.04 K/mm3 (0.00-0.23); BASOPHILS PERCENT AUTO 0 % (0-2); EOSINOPHILS ABSOLUTE AUTO 0.18 K/mm3 (0.00-0.68); EOSINOPHILS PERCENT AUTO 2 % (0-6); Hematocrit 43.9 % (37.0-53.0); Hemoglobin 14.8 g/dL (13.5-17.5); IMMATURE GRAN ABSOLUTE AUTO 0.07 K/mm3 (0.00-0.10); IMMATURE GRAN PERCENT AUTO 1 % (0-1); LYMPHOCYTES ABSOLUTE AUTO 1.58 K/mm3 (0.84-5.20); LYMPHOCYTES PERCENT AUTO 16 % (21-46); MONOCYTES ABSOLUTE AUTO 1.19 K/mm3 (0.16-1.47); MONOCYTES PERCENT AUTO 12 % (4-13); Mean Corpuscular HGB 29.3 pg (26.0-34.0); Mean Corpuscular HGB Conc 33.7 g/dL (31.5-36.5); Mean Corpuscular Volume 87 fL (80-100); Mean Platelet Volume 10.6 fL (9.1-12.4); NEUTROPHILS ABSOLUTE AUTO 7.07 K/mm3 (1.96-9.15); NEUTROPHILS PERCENT AUTO 70 % (41-73); Platelet Count 224 K/mm3 (150-400); RDW Coefficient Variation 12.1 % (11.7-14.2); RDW Standard Deviation 38.7 fL (35.1-46.3); Red Blood Cell Count 5.05 M/mm3 (4.30-5.90); White Blood Cell Count 10.13 K/mm3 (4.00-11.30)
[2021-07-05 05:56] LABS: Anion Gap 9 mmol/L (6-16); Blood Urea Nitrogen 13 mg/dL (8-24); Bun/Creatinine Ratio 15.8 (12.0-20.0); CO2, Blood 24 mmol/L (21-32); Calcium, Blood 8.5 mg/dL (8.5-10.1); Chloride, Blood 103 mmol/L (98-108); Creatinine, Blood 0.82 mg/dL (0.60-1.20); Glomerular Filtration Rate >60 (60-); Glucose, Blood 122 mg/dL (70-99); Potassium, Blood 4.5 mmol/L (3.5-5.5); Sodium, Blood 136 mmol/L (136-145)
--- NOTE | 2021-07-05 18:14 | NUR ---
PATIENT IS ALERT AND ORIENTED AND COOPERATIVE WITH CARE. PAIN STATES HIS RIGHT HAND PAIN HAS BEEN TOLERABLE THIS SHIFT, NOT MEDICATED. PATIENT SLEPT BETWEEN MEALS. PLAN IS FOR DR. ALVAREZ TO REASSESS FOR I&D TOMORROW, THE PATIENT IS NOT TO BE MADE NPO AFTER MIDNIGHT TONIGHT LIKE HE HAD THE PREVIOUS NIGHTS. WILL CONTINUE TO MONITOR.
[2021-07-06 04:15] LABS: BASOPHILS ABSOLUTE AUTO 0.05 K/mm3 (0.00-0.23); BASOPHILS PERCENT AUTO 1 % (0-2); EOSINOPHILS ABSOLUTE AUTO 0.17 K/mm3 (0.00-0.68); EOSINOPHILS PERCENT AUTO 2 % (0-6); Hematocrit 44.3 % (37.0-53.0); IMMATURE GRAN ABSOLUTE AUTO 0.16 K/mm3 (0.00-0.10); IMMATURE GRAN PERCENT AUTO 2 % (0-1); LYMPHOCYTES ABSOLUTE AUTO 1.73 K/mm3 (0.84-5.20); LYMPHOCYTES PERCENT AUTO 17 % (21-46); MONOCYTES ABSOLUTE AUTO 1.18 K/mm3 (0.16-1.47); MONOCYTES PERCENT AUTO 11 % (4-13); Mean Corpuscular HGB 29.5 pg (26.0-34.0); Mean Corpuscular HGB Conc 33.9 g/dL (31.5-36.5); Mean Corpuscular Volume 87 fL (80-100); Mean Platelet Volume 9.4 fL (9.1-12.4); NEUTROPHILS PERCENT AUTO 69 % (41-73); Platelet Count 299 K/mm3 (150-400); RDW Coefficient Variation 11.9 % (11.7-14.2); RDW Standard Deviation 38.3 fL (35.1-46.3); Red Blood Cell Count 5.09 M/mm3 (4.30-5.90); White Blood Cell Count 10.49 K/mm3 (4.00-11.30)
[2021-07-06 04:34] LABS: Anion Gap 7 mmol/L (6-16); Blood Urea Nitrogen 15 mg/dL (8-24); CO2, Blood 26 mmol/L (21-32); Calcium, Blood 8.8 mg/dL (8.5-10.1); Chloride, Blood 104 mmol/L (98-108); Creatinine, Blood 0.83 mg/dL (0.60-1.20); Glomerular Filtration Rate >60 (60-); Glucose, Blood 149 mg/dL (70-99); Sodium, Blood 137 mmol/L (136-145); Vancomycin, Trough 8.5 ug/mL (5.0-10.0)
[2021-07-06] MEDS ORDERED: SULFAMETHOXAZO1 EAC1 PO (16:22)
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
== END 2021-07-06 16:40 | disposition home or self-care (01) | DRG 603 ==
LOC: ER 12:56 → MEDS 17:24 → ENPENDDIS 07-06 15:40 → MEDS 07-06 16:40
PROVIDERS: Pharmacist; Physician Assistant; ADMIT Family Medicine
DX: L03.113 Cellulitis of right upper limb (principal); I10 Essential (primary) hypertension; I25.10 Atherosclerotic heart disease of native coronary artery without angina pectoris; E78.5 Hyperlipidemia, unspecified; Z59.00 Homelessness unspecified; Z88.0 Allergy status to penicillin; K21.9 Gastro-esophageal reflux disease without esophagitis; Z20.822 Contact with and (suspected) exposure to COVID-19; Z95.5 Presence of coronary angioplasty implant and graft; F17.210 Nicotine dependence, cigarettes, uncomplicated; Z79.82 Long term (current) use of aspirin; Z79.899 Other long term (current) drug therapy; I25.2 Old myocardial infarction; Z98.890 Other specified postprocedural states
CPT/HCPCS: 0241U; 36415; 70450; 73201; 80048; 80053; 80202; 83605; 84145; 85025; 85651; 86140; 87040; 93971; 94640; 94664; 94760; 96365; 99283; 99285-25; A9270; J0696; J1650; J1885; J2270; J3370; J7050; Q9967

== ENCOUNTER 2021-12-01 06:29 | Emergency (ER) | payer OTHER ==
[~2021-12-01] VITALS: Ht 167.6 cm; Wt 99.8 kg
[~2021-12-01 06:29] MED LIST changes: +BACTRIM DS TAB1 EAC6 PO; +IBU800 M1 PO; +SULFAMETHOXAZO1 EAC1 PO
[2021-12-01] MEDS ORDERED: CYCL10 PO (07:36)
== END 2021-12-01 07:47 | disposition home or self-care (01) ==
LOC: ER 06:29
DX: M79.18 Myalgia, other site (principal); I25.2 Old myocardial infarction; I10 Essential (primary) hypertension; F17.210 Nicotine dependence, cigarettes, uncomplicated; Z95.5 Presence of coronary angioplasty implant and graft
CPT/HCPCS: A9270

== ENCOUNTER 2022-04-17 14:38 | Emergency (ER) | payer OTHER ==
[~2022-04-17] VITALS: Ht 162.6 cm; Wt 90.7 kg
[2022-04-17 15:22] LABS: BASOPHILS ABSOLUTE AUTO 0.03 K/mm3 (0.00-0.23); BASOPHILS PERCENT AUTO 0 % (0-2); EOSINOPHILS ABSOLUTE AUTO 0.13 K/mm3 (0.00-0.68); EOSINOPHILS PERCENT AUTO 2 % (0-6); Hematocrit 43.5 % (37.0-53.0); IMMATURE GRAN ABSOLUTE AUTO 0.04 K/mm3 (0.00-0.10); IMMATURE GRAN PERCENT AUTO 1 % (0-1); LYMPHOCYTES ABSOLUTE AUTO 2.18 K/mm3 (0.84-5.20); LYMPHOCYTES PERCENT AUTO 25 % (21-46); MONOCYTES ABSOLUTE AUTO 0.79 K/mm3 (0.16-1.47); MONOCYTES PERCENT AUTO 9 % (4-13); Mean Corpuscular HGB 29.8 pg (26.0-34.0); Mean Corpuscular HGB Conc 34.5 g/dL (31.5-36.5); Mean Corpuscular Volume 87 fL (80-100); Mean Platelet Volume 10.4 fL (9.1-12.4); NEUTROPHILS ABSOLUTE AUTO 5.55 K/mm3 (1.96-9.15); NEUTROPHILS PERCENT AUTO 64 % (41-73); Platelet Count 253 K/mm3 (150-400); RDW Standard Deviation 40.8 fL (35.1-46.3); Red Blood Cell Count 5.03 M/mm3 (4.30-5.90); White Blood Cell Count 8.72 K/mm3 (4.00-11.30)
[2022-04-17 15:52] LABS: Bilirubin, Total 0.2 mg/dL (0.1-1.0); Bun/Creatinine Ratio 16.3 (12.0-20.0); Calcium, Blood 9.4 mg/dL (8.5-10.1); Creatinine, Blood 0.86 mg/dL (0.60-1.20)
[2022-04-17] MEDS ORDERED: SPIRONOLACTONE25 MG PO (17:16)
[2022-04-17] MEDS ORDERED: TORSE20 PO (17:16)
== END 2022-04-17 19:39 | disposition home or self-care (01) ==
LOC: ER 14:38
PROVIDERS: Physician Assistant
DX: R07.9 Chest pain, unspecified (principal); I25.2 Old myocardial infarction; I10 Essential (primary) hypertension; E78.5 Hyperlipidemia, unspecified; I25.10 Atherosclerotic heart disease of native coronary artery without angina pectoris; F17.210 Nicotine dependence, cigarettes, uncomplicated; Z79.82 Long term (current) use of aspirin; Z79.899 Other long term (current) drug therapy; Z88.0 Allergy status to penicillin; Z95.5 Presence of coronary angioplasty implant and graft
CPT/HCPCS: 36415; 71046; 80053; 83690; 84484; 85025; 93005; 93010; J2405

== ENCOUNTER 2022-05-05 10:08 | Emergency (ER) | payer OTHER ==
[~2022-05-05] VITALS: Ht 167.6 cm; Wt 92.1 kg
[~2022-05-05 10:08] MED LIST changes: +SPIRONOLACTONE25 MG PO; +TORSE20 PO
[2022-05-05] MEDS ORDERED: Robaxin750 MG PO (11:30)
== END 2022-05-05 11:35 | disposition home or self-care (01) ==
LOC: ER 10:08
DX: M54.2 Cervicalgia (principal); M25.511 Pain in right shoulder; I25.2 Old myocardial infarction; I10 Essential (primary) hypertension; I25.10 Atherosclerotic heart disease of native coronary artery without angina pectoris; E78.5 Hyperlipidemia, unspecified; F17.210 Nicotine dependence, cigarettes, uncomplicated; W50.0XXA Accidental hit or strike by another person, initial encounter; Z95.5 Presence of coronary angioplasty implant and graft; Z88.0 Allergy status to penicillin; Z79.82 Long term (current) use of aspirin; Z79.899 Other long term (current) drug therapy
CPT/HCPCS: A9270